=== PATIENT | female | born 2000 | race Two or more races ===

== ENCOUNTER 2025-03-05 08:55 | Outpatient (RCR) | payer MEDICAID, SELFPAY | END 2025-03-20 23:59 | disposition home or self-care (01) | LOC: SCTC 08:55 | PROVIDERS: PCP Physician Assistant; Referring Provider Physician Assistant; Visit Provider Internal Medicine Hematology & Oncology | DX: D50.9 Iron deficiency anemia, unspecified (principal); N92.0 Excessive and frequent menstruation with regular cycle | CPT/HCPCS: 99212; G0463 ==

== ENCOUNTER 2025-04-02 08:28 | Outpatient (RCR) | payer MEDICAID, SELFPAY | END 2025-04-20 23:59 | disposition home or self-care (01) | LOC: SCTC 08:28 | PROVIDERS: PCP Physician Assistant; Referring Provider Physician Assistant; Visit Provider Nurse Practitioner Family | DX: D50.9 Iron deficiency anemia, unspecified (principal); N92.0 Excessive and frequent menstruation with regular cycle | CPT/HCPCS: 99212; G0463 ==